=== PATIENT | male | born 1955 | race Caucasian/White ===

== ENCOUNTER 2016-11-02 17:40 | Emergency (ER) | payer OTHER ==
[~2016-11-02] VITALS: Ht 157.5 cm; Wt 72.6 kg
[2016-11-02 20:06] VITALS: BP 137/87
== END 2016-11-02 20:06 | disposition home or self-care (01) ==
LOC: ED 17:40
DX: S92.321A Displaced fracture of second metatarsal bone, right foot, initial encounter for closed fracture (principal); S92.331A Displaced fracture of third metatarsal bone, right foot, initial encounter for closed fracture; E11.9 Type 2 diabetes mellitus without complications; Z79.84 Long term (current) use of oral hypoglycemic drugs; Z79.4 Long term (current) use of insulin; Z79.82 Long term (current) use of aspirin; W55.32XA Struck by other hoof stock, initial encounter; Y93.89 Activity, other specified; Y92.89 Other specified places as the place of occurrence of the external cause; Y99.0 Civilian activity done for income or pay
CPT/HCPCS: J3010